=== PATIENT | male | born 1945 | race Caucasian/White ===

== ENCOUNTER 2022-09-02 14:03 | Emergency (ER) | payer MEDICARE ==
[~2022-09-02] VITALS: Ht 172.7 cm; Wt 81.2 kg
[2022-09-02 14:16] VITALS: BP 155/98
[2022-09-02] MEDS ORDERED: FLUORESCEIN SODIUM OPHTH 1 EA STRIP OP ONE (14:30)
[2022-09-02] MEDS ORDERED: TETRAcaine 5 ML BOTTLE EACHEYE ONE (14:30)
[2022-09-02] MEDS ORDERED: FLUORESCEIN SODIUM OPHTH 1 EA STRIP ONE (14:33)
--- NOTE | 2022-09-02 14:50 | NUR ---
EYE IRRIGATION ON GOING
--- NOTE | 2022-09-02 15:36 | NUR ---
Patient discharged to home in stable condition. Written and verbal after care instructions given. Patient verbalizes understanding of instruction.
== END 2022-09-02 15:37 | disposition home or self-care (01) ==
LOC: ER 14:03
DX: H10.212 Acute toxic conjunctivitis, left eye (principal); I10 Essential (primary) hypertension; E78.5 Hyperlipidemia, unspecified
CPT/HCPCS: 99284; J7030